=== PATIENT | female | born 1935 | race Caucasian/White ===

== ENCOUNTER 2021-02-24 05:24 | Emergency (ER) | payer MEDICARE, BC ==
[2021-02-24] MEDS ORDERED: Sodium Chloride 0.9% 1,000 ML ONE (06:01)
[2021-02-24] MEDS ORDERED: Sodium Chloride 0.9% 1,000 ML IV ONE (06:03)
--- NOTE | 2021-02-24 06:22 | EDM.PDOC ---
ED HPI GENERAL MEDICAL PROBLEM - General Chief Complaint: General Stated Complaint: Weakness, sore throat Time Seen by Provider: 02/24/21 06:04 Source of Information: Reports: Patient History Limitations: Reports: No Limitations - History of Present Illness INITIAL COMMENTS - FREE TEXT/NARRATIVE: Patient presents with a sore throat, hoarseness, and cough for 6 days and some weakness too. She has had Covid vaccine but would like checked for that. She also started Lipitor a month ago after a "light heart attack" and read that it can cause sore throat. She has a history of anemia and takes Vit B12 and iron for this. She has had goiter and used to take Synthroid but it was stopped several years ago by her doctor. Throat Pain Score (Numeric/FACES): 4 - Related Data Allergies Allergy/AdvReac Type Severity Reaction Status Date / Time propranolol Allergy Hypotension Verified 02/24/21 06:10 Sulfa (Sulfonamide Allergy Hives Verified 02/24/21 06:10 Antibiotics) Home Meds: Home Meds Losartan [Cozaar] 50 mg PO DAILY 06/13/14 [History] ALPRAZolam [Alprazolam] 0.25 mg PO BID PRN 01/11/16 [History] Calcium Citrate/Vitamin D3 [Calcium Citrate-Vit D3 Tablet] 500 - 630 mg PO BID 01/11/16 [History] Magnesium Oxide 500 mg PO DAILY 01/11/16 [History] Diltiazem HCl [Diltiazem 24Hr ER] 120 mg PO DAILY 01/13/16 [History] Acetaminophen [Tylenol Extra Strength] 500 - 1,000 mg PO Q6H PRN 02/24/21 [History] Aspirin 81 mg PO DAILY 02/24/21 [History] Escitalopram Oxalate [Lexapro] 20 mg PO DAILY 02/24/21 [History] Isosorbide Dinitrate 5 mg PO BID 02/24/21 [History] Metoprolol Tartrate 25 mg PO ASDIRECTED 02/24/21 [History] Rivaroxaban [Xarelto] 20 mg PO DAILY@2030 02/24/21 [History] atorvaSTATin Calcium [Lipitor] 40 mg PO DAILY 02/24/21 [History] Past Medical History HEENT History: Reports: Cataract, Hard of Hearing, Impaired Vision Cardiovascular History: Reports: Other (See Below) Other Cardiovascular History: SVT Gastrointestinal History: Reports: Chronic Constipation, GERD, Other (See Below) Other Gastrointestinal History: DIVERTICULITIS. FISTULA Genitourinary History: Reports: Retention, Urinary, UTI, Recurrent Other Genitourinary History: self caths since 2009 d/t urinary retention, frequent UTI's Musculoskeletal History: Reports: Arthritis, Fracture, Osteoarthritis, Osteoporosis Other Musculoskeletal History: left wrist fracture with pins Psychiatric History: Reports: Anxiety Endocrine/Metabolic History: Reports: Osteoporosis Other Endocrine/Metabolic History: H/O lump on her thyroid Hematologic History: Reports: Anemia Oncologic (Cancer) History: Reports: Breast - Past Surgical History HEENT Surgical History: Reports: None Oncologic Surgical History: Reports: Lumpectomy, Mastectomy Social & Family History - Family History HEENT: Reports: None Cardiac: Reports: Other (See Below) Respiratory: Reports: None GI: Reports: None : Reports: None OBGYN: Reports: None Musculoskeletal: Reports: None Neurological: Reports: Alzheimers Disease Endocrine/Metabolic: Reports: Diabetes, type II (Sister borderline diabetic) Hematologic: Reports: None Immunologic: Reports: None Dermatologic: Reports: None Oncologic: Reports: Breast (one sister breast cancer) - Tobacco Use Tobacco Use Status *Q: Never Tobacco User - Caffeine Use Caffeine Use: Reports: Coffee - Recreational Drug Use Recreational Drug Use: No ED ROS GENERAL - Review of Systems Review Of Systems: See Below Constitutional: Reports: Weakness. Denies: Fever, Chills, Malaise, Decreased Appetite HEENT: Reports: Throat Pain. Denies: Ear Pain, Vision Change Respiratory: Denies: Shortness of Breath, Cough Cardiovascular: Denies: Chest Pain, Lightheadedness, Syncope GI/Abdominal: Denies: Abdominal Pain, Diarrhea, Vomiting : Denies: Dysuria, Flank Pain Musculoskeletal: Denies: Neck Pain, Shoulder Pain, Arm Pain, Back Pain, Hand Pain, Leg Pain Skin: Denies: Cyanosis, Jaundice, Mottled, Pallor, Diaphoresis Neurological: Denies: Confusion, Dizziness, Headache, Seizure, Syncope, Trouble Speaking, Difficulty Walking Psychiatric: Denies: Agitation, Anxiety, Confusion Hematologic/Lymphatic: Reports: Anemia ED EXAM, GENERAL - Physical Exam Exam: See Below Exam Limited By: No Limitations General Appearance: Alert, WD/WN, No Apparent Distress Eye Exam: Bilateral Eye: EOMI, Normal Inspection, PERRL Ears: Normal External Exam, Hearing Grossly Normal Nose: Normal Inspection, No Blood Throat/Mouth: Normal Inspection, Normal Lips, Normal Voice, No Airway Compromise, Other (her posterior tongue has a yellow appearance and she says she ate an orange this morning) Head: Atraumatic, Normocephalic Neck: Normal Inspection, Full Range of Motion Respiratory/Chest: No Respiratory Distress, Lungs Clear, Normal Breath Sounds, No Accessory Muscle Use Cardiovascular: Normal Peripheral Pulses, Regular Rate, Rhythm, No Edema, No Murmur GI/Abdominal: Normal Bowel Sounds, Soft, Non-Tender, No Organomegaly, No Distention, No Abnormal Bruit Back Exam: Normal Inspection, Full Range of Motion. No: CVA Tenderness (L), CVA Tenderness (R) Extremities: Normal Inspection, Normal Range of Motion Neurological: Alert, Oriented, Normal Cognition, No Motor/Sensory Deficits Psychiatric: Normal Affect, Normal Mood Skin Exam: Warm, Dry, Intact, Normal Color, No Rash Course - Vital Signs Last Recorded V/S: Last Vital Signs Temp 98.5 F 02/24/21 05:53 Pulse 73 02/24/21 07:15 Resp 16 02/24/21 07:15 BP 151/83 H 02/24/21 07:15 Pulse Ox 95 02/24/21 07:15 - Orders/Labs/Meds Orders: Active Orders 24 hr Category Date Time Status Peripheral IV Care [RC] . DIRECTED Care 02/24/21 06:32 Active STREP SCRN A RAPID W CULT CONF [RM] Stat Lab 02/24/21 06:14 Ordered Sodium Chloride 0.9% [Saline Flush] Med 02/24/21 06:32 Active 10 ml FLUSH Q8HR PRN Peripheral IV Insertion Adult [OM.PC] Routine Oth 02/24/21 06:00 Ordered Medication Orders Sodium Chloride (Sodium Chloride 0.9% 10 Ml Syringe) 10 ml FLUSH Q8HR PRN PRN Reason: keep vein open Labs: Laboratory Tests 02/24/21 02/24/21 02/24/21 Range/Units 06:05 06:05 06:19 WBC 4.85 L (5.00-10.00) 10^3/uL RBC 4.51 (3.80-5.50) 10^6/uL Hgb 13.6 (12.0-16.0) g/dL Hct 41.9 (37.0-47.0) % MCV 92.9 H (82.0-92.0) fL MCH 30.2 (27.0-31.0) pg MCHC 32.5 (32.0-36.0) g/dL RDW 12.8 (11.5-14.5) % Plt Count 186 (150-400) 10^3/uL MPV 10.8 H (7.4-10.4) fL Immature Gran % (Auto) 0.2 (0.0-5.0) % Neut % (Auto) 78.2 H (50.0-70.0) % Lymph % (Auto) 10.5 L (20.0-40.0) % Hart % (Auto) 9.1 H (2.0-8.0) % Eos % (Auto) 1.6 (1.0-3.0) % Baso % (Auto) 0.4 (0.0-1.0) % Neut # (Auto) 3.79 (2.50-7.00) 10^3/uL Lymph # (Auto) 0.51 L (1.00-4.00) 10^3/uL Hart # (Auto) 0.44 (0.10-0.80) 10^3/uL Eos # (Auto) 0.08 L (0.10-0.30) 10^3/uL Baso # (Auto) 0.02 (0.00-0.10) 10^3/uL Immature Gran # (Auto) 0.01 (0.00-0.50) 10^3/uL Sodium 136 (136-145) mmol/L Potassium 4.2 (3.5-5.1) mmol/L Chloride 100 (98-107) mmol/L Carbon Dioxide 25.0 (21.0-32.0) mmol/L Anion Gap 15.2 H (5-15) mmol/L BUN 8 (7-18) mg/dL Creatinine 0.66 (0.51-1.17) mg/dL Est Cr Clr Drug Dosing 52.84 mL/min Estimated GFR (MDRD) > 60 mL/min Glucose 106 (70-140) mg/dL Calcium 8.7 (8.7-10.3) mg/dL TSH, Ultra Sensitive 1.233 (0.340-4.820) uIU/mL SARS CoV-2 RNA Rapid JASON Negative (NEGATIVE) Meds: Medications Generic Name Dose Route Start Last Admin Trade Name Freq PRN Reason Stop Dose Admin Sodium Chloride 10 ml 02/24/21 06:32 Sodium Chloride 0.9% 10 Ml Syringe FLUSH Q8HR PRN keep vein open Discontinued Medications Generic Name Dose Route Start Last Admin Trade Name Freq PRN Reason Stop Dose Admin Sodium Chloride Confirm 02/24/21 06:01 02/24/21 06:07 Normal Saline Administered 02/24/21 06:02 Not Given Dose 1,000 mls @ as directed .ROUTE .STK-MED ONE Sodium Chloride 1,000 mls @ 999 mls/hr 02/24/21 06:03 02/24/21 06:04 Normal Saline IV 02/24/21 07:03 999 mls/hr .BOLUS ONE Administration - Re-Assessments/Exams Free Text/Narrative Re-Assessment/Exam: 02/24/21 07:42 Labs are good. Strep culture pending. Fluid bolus is in. Patient is feeling well. Discussed findings and recommendations. Discharged to home in stable condition. Departure - Departure Time of Disposition: 07:39 Disposition: Home, Self-Care 01 Condition: Good Clinical Impression: Sore throat URI (upper respiratory infection) Qualifiers: URI type: unspecified URI Qualified Code(s): J06.9 - Acute upper respiratory infection, unspecified - Discharge Information Instructions: Upper Respiratory Infection, Adult, [id number], Sore Throat, [id number] Referrals: Fidelina Ferrell [employer] [Primary Care Provider] - Forms: ED Department Discharge Additional Instructions: Continue drinking plenty of water; 6-8 cups a day is ideal. You can use sprays, lozenges or salt water gargles for the sore throat as we discussed. Follow up with your PCP if not improving in a few days or sooner if worsening. Return to ER if needed. Sepsis Event Note (ED) - Evaluation Sepsis Screening Result: No Definite Risk - Focused Exam Vital Signs: Vital Signs Temp Pulse Resp BP Pulse Ox 02/24/21 07:15 73 16 151/83 H 95 02/24/21 07:00 78 16 144/70 H 93 L 02/24/21 06:39 62 20 117/58 L 95 02/24/21 05:53 98.5 F 81 20 160/92 H 95 - My Orders Last 24 Hours: My Active Orders 02/24/21 06:00 Peripheral IV Insertion Adult [OM.PC] Routine 02/24/21 06:14 STREP SCRN A RAPID W CULT CONF [RM] Stat 02/24/21 06:32 Peripheral IV Care [RC] . DIRECTED Sodium Chloride 0.9% [Saline Flush] 10 ml FLUSH Q8HR PRN - Assessment/Plan Last 24 Hours: My Active Orders 02/24/21 06:00 Peripheral IV Insertion Adult [OM.PC] Routine 02/24/21 06:14 STREP SCRN A RAPID W CULT CONF [RM] Stat 02/24/21 06:32 Peripheral IV Care [RC] . DIRECTED Sodium Chloride 0.9% [Saline Flush] 10 ml FLUSH Q8HR PRN
[2021-02-24] MEDS ORDERED: Sodium Chloride 0.9% 10 ML Syringe FLUSH PRN (06:32)
[2021-02-24 06:47] LABS: ANION GAP 15.2 mmol/L (5-15); CHLORIDE,CL 100 mmol/L (98-107); SODIUM,NA 136 mmol/L (136-145)
[2021-02-24 07:16] VITALS: BP 151/83; PULSE 73
== END 2021-02-24 07:45 | disposition home or self-care (01) ==
LOC: KA.ED 05:24
DX: J02.9 Acute pharyngitis, unspecified (principal); Z20.822 Contact with and (suspected) exposure to COVID-19; Z79.82 Long term (current) use of aspirin; Z79.899 Other long term (current) drug therapy; Z88.5 Allergy status to narcotic agent; Z88.2 Allergy status to sulfonamides
CPT/HCPCS: 36415; 80048; 84443; 85025; 87081; 87430; 99283; J7030; U0002

== ENCOUNTER 2022-10-11 11:30 | Emergency (ER) | payer MEDICARE, BC ==
[2022-10-11] MEDS ORDERED: Sodium Chloride 0.9% 10 ML Syringe FLUSH PRN (11:38)
[2022-10-11] MEDS: Metoprolol Tartrate 5 MG/5 ML SDV IVPUSH ONE (11:55)
[2022-10-11 12:48] LABS: ANION GAP 14.6 mmol/L (5-15)
[2022-10-11 15:45] VITALS: BP 139/75; PULSE 68
== END 2022-10-11 13:30 | disposition home or self-care (01) ==
LOC: KA.ED 11:30
DX: R00.0 Tachycardia, unspecified (principal); I48.91 Unspecified atrial fibrillation; I25.2 Old myocardial infarction; K21.9 Gastro-esophageal reflux disease without esophagitis; Z79.01 Long term (current) use of anticoagulants; Z79.899 Other long term (current) drug therapy; Z88.2 Allergy status to sulfonamides; Z88.8 Allergy status to other drugs, medicaments and biological substances
CPT/HCPCS: 36415; 71045; 80053; 83880; 84484; 85025; 93010; 99284; 99285